=== PATIENT | male | born 1955 | race Two or more races ===

== ENCOUNTER 2022-03-19 12:33 | Emergency (ER) | payer SELFPAY ==
[~2022-03-19] VITALS: Ht 170.2 cm; Wt 72.1 kg
--- NOTE | 2022-03-19 12:41 | NUR ---
BIBSON C/O BODY RASH SINCE THE WEEKEND WHILE WORKING OUTSIDE. VITALS ARE WITHIN NORMAL LIMTIS. NO RESP DISTRESS NOTED, ON ROOM AIR.
--- NOTE | 2022-03-19 12:45 | NUR ---
SEEN AND EXAMINED BY DR QUINN
[2022-03-19] MEDS ORDERED: PRED10TA PO (12:48)
[2022-03-19] MEDS ORDERED: DIPH25CA83 PO (12:48)
--- NOTE | 2022-03-19 13:13 | NUR ---
Patient discharged to home in stable condition. Written and verbal after care instructions given. Patient verbalizes understanding of instruction.
[2022-03-19 13:14] VITALS: BP 138/79
--- NOTE | 2022-03-19 13:14 | NUR ---
Patient discharged to home in stable condition. Written and verbal after care instructions given. Patient verbalizes understanding of instruction.
== END 2022-03-19 13:15 | disposition home or self-care (01) ==
LOC: ER 12:33
DX: L23.7 Allergic contact dermatitis due to plants, except food (principal); Z88.0 Allergy status to penicillin; Z79.899 Other long term (current) drug therapy

== ENCOUNTER 2025-01-04 23:15 | Emergency (ER) | payer MEDICAID ==
[~2025-01-04] VITALS: Ht 172.7 cm; Wt 77.1 kg
[~2025-01-04 23:15] MED LIST: DIPH25CA83 PO; PRED10TA PO
[2025-01-05] MEDS ORDERED: KETOROLAC TROMETHAMINE INJ 30 MG/ML VIAL ONE (00:44)
[2025-01-05] MEDS ORDERED: TAMSULOSIN 0.4 MG CAP.SR.24H ONE (00:44)
[2025-01-05 00:45] LABS: BASOPHILS # (AUTO) 0.1 K/uL (0.0-0.2); BASOPHILS % (AUTO) 0.7 % (0.0-2.0); EOSINOPHILS # (AUTO) 0.3 K/uL (0.0-0.7); EOSINOPHILS % (AUTO) 3.5 % (0.0-6.0); HEMATOCRIT 39 % (39-51); LYMPHOCYTES # (AUTO) 1.2 K/uL (0.8-4.8); LYMPHOCYTES % (AUTO) 15.8 % (20.0-44.0); MEAN CORPUSCULAR HEMOGLOBIN 27 PG (26.0-33.0); MEAN CORPUSCULAR HGB CONC 34 g/dl (31.0-36.0); MEAN CORPUSCULAR VOLUME 80 fL (80-96); MONOCYTES # (AUTO) 0.5 K/uL (0.1-1.30); MONOCYTES % (AUTO) 6.1 % (2.0-12.0); NEUTROPHILS # (AUTO) 5.8 K/uL (1.8-8.9); NEUTROPHILS % (AUTO) 73.9 % (43.0-81.0); PLATELET COUNT (AUTO) 427 K/uL (150-450); RED CELL DISTRIBUTION WIDTH 13.9 % (11.5-15.0); WHITE BLOOD COUNT (AUTO) 7.8 K/uL (4.3-11.0)
[2025-01-05 00:56] LABS: CALCIUM, SERUM 9.4 mg/dL (8.5-10.1); CREATININE 1.2 mg/dL (0.6-1.3); POTASSIUM 4.2 mmol/L (3.5-5.1)
[2025-01-05 01:01] LABS: ALBUMIN 3.7 g/dL (3.4-5.0); BILIRUBIN,DIRECT 0.1 mg/dL (0.0-0.2); BILIRUBIN,TOTAL 0.3 mg/dL (0.2-1.0); TOTAL PROTEIN, SERUM 8.2 g/dL (6.4-8.2)
[2025-01-05] MEDS: IV NS 0.9% 1,000 ML BAG IV ONE (01:05)
[2025-01-05] MEDS: KETOROLAC TROMETHAMINE 15 MG/ML VIAL IV ONE (01:05)
[2025-01-05 01:11] LABS: APPEARANCE,URINE CLEAR (CLEAR); BILIRUBIN,URINE NEGATIVE (NEGATIVE); BLOOD, URINE TRACE-INTA Ery/uL (NEGATIVE); COLOR,URINE YELLOW (YELLOW); KETONES,URINE NEGATIVE (NEGATIVE); LEUKOCYTE ESTERASE ,URINE TRACE (NEGATIVE); NITRITE, URINE NEGATIVE (NEGATIVE); PROTEIN,URINE TRACE mg/dl (NEGATIVE); UGLUCOSE NEGATIVE (NEGATIVE); UROBILINOGEN,URINE 0.2 EU/dL (0.2)
[2025-01-05] MEDS: TAMSULOSIN 0.4 MG CAP.SR.24H PO ONE (01:12)
[2025-01-05 01:24] LABS: ADD URINE CULTURE YES; BACTERIA,URINE Few /HPF (None Seen); SQUAMOUS EPITHELIAL CELL,UR Few /HPF (None Seen)
[2025-01-05] MEDS ORDERED: CIPROFLOXACIN HCL 500 MG TABLET ONE (02:06)
[2025-01-05] MEDS: CIPROFLOXACIN HCL 250 MG TABLET PO ONE (02:08)
[2025-01-05] MEDS ORDERED: TAMS-12 PO (03:30)
[2025-01-05] MEDS ORDERED: CIPR-262 PO (03:30)
[2025-01-05 04:20] VITALS: BP 136/74; TEMP 98.5; O2SAT 98
== END 2025-01-05 04:21 | disposition home or self-care (01) ==
LOC: ER 23:19
DX: R33.9 Retention of urine, unspecified (principal); N13.6 Pyonephrosis; Z88.0 Allergy status to penicillin
CPT/HCPCS: 99285; 51702; 74176; 96374; 71045; 96361; 85025; 80048; 87086; 83690; 80076; 81001; 36415; J1885; J7030 ×2